=== PATIENT | female | born 1950 | race Two or more races ===

== ENCOUNTER 2024-09-29 22:54 | Emergency (ER) | payer OTHER ==
[~2024-09-29] VITALS: Ht 149.9 cm; Wt 77.2 kg
[2024-09-30 00:35] VITALS: BP 159/81; PULSE 74; RESP 16; TEMP 98.8; O2SAT 97
[2024-09-30] MEDS ORDERED: AZIT-43 PO (00:37)
[2024-09-30] MEDS ORDERED: PRED10TA PO (00:37)
--- NOTE | 2024-09-30 00:38 | ED.PDOC ---
SOB-HPI HPI Comments 74-year-old female presents to ER with complaints of cough x1 day. Patient with PMH of hypertension reports that she has been experiencing productive cough with white phlegm and congestion x1 day. Denies use of medications for current symptoms. Denies any current pain. Patient presents to ER ambulatory on arrival, alert and oriented x4, with steady gait, in no distress and does present hypertensive at 193/95, noting that she just took her prescribed clonidine 0.2 mg on arrival to ER. 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 Pertinent MUSIC THEORY PROFESSOR History Family History Family History: Unknown Social History Smoker: Non-Smoker Alcohol: Denies ETOH Use Drugs: Denies Drug Use Lives In: Home Constitutional: denies: chills, diaphoresis, fatigue, fever, malaise, sweats, weakness, others EENTM: denies: blurred vision, double vision, ear bleeding, ear discharge, ear drainage, ear pain, ear ringing, eye pain, eye redness, hearing loss, mouth pain, mouth swelling, nasal discharge, nose bleeding, nose congestion, nose pain, photophobia, tearing, throat pain, throat swelling, voice changes, others Respiratory: reports: others (As stated in HPI) Cardiovascular: denies: chest pain, dizzy spells, diaphoresis, Dyspnea on exertion, edema, irregular heart beat, left arm pain, lightheadedness, palpitations, PND, syncope, others Gastrointestinal: denies: abdomen distended, abdominal pain, blood streaked bowels, constipated, diarrhea, dysphagia, difficulty swallowing, hematemesis, melena, nausea, poor appetite, poor fluid intake, rectal bleeding, rectal pain, vomiting, others Genitourinary: denies: abnormal vagina bleeding, burning, dyspareunia, dysuria, flank pain, frequency, hematuria, incontinence, pain, , vagina discharge, urgency, others Neurological: denies: dizziness, fainting, headache, left sided numbness, left sided weakness, numbness, paresthesia, pre-existing deficit, right sided numbness, right sided weakness, seizure, speech problems, tingling, tremors, weakness, others Musculoskeletal: denies: back pain, gout, joint pain, joint swelling, muscle pain, muscle stiffness, neck pain, others Integumetry: denies: bruises, change in color, change in hair/nails, dryness, laceration, lesions, lumps, rash, wounds, others Allergic/Immunocompromised: denies: Difficulty Healing, Frequent Infections, Hives, Itching, others Hematologic/Lymphatic: denies: anemia, blood clots, easy bleeding, easy bruising, swollen glands, others Endocrine: denies: excessive hunger, excessive sweating, excessive thirst, excessive urination, flushing, intolerance to cold, intolerance to heat, unexplained weight gain, unexplained weight loss, others Psychiatric: denies: anxiety, bipolar disorder, depression, hopeless, panic disorder, schizophrenia, sleepless, suicidal, others Physical Exam General Appearance: No Apparent Distress, Obese HEENT: Normal ENT Inspection, PERRL/EOMI, Pharynx Normal, TMs Normal Neck: Full Range of Motion, Non-Tender, Normal Respiratory: Chest Non-Tender, Lungs Clear, No Accessory Muscle Use, No Respiratory Distress, Normal Breath Sounds Cardiovascular: No Murmur, No Gallop, Regular Rate/Rhythm Breast Exam: Deferred Gastrointestinal: NOT DONE Genitalia: Deferred Pelvic: Deferred Rectal: Deferred Extremities: Normal capillary refill, Normal range of motion Neurologic: Alert, sign builder II-XII nml as Tested, No Motor Deficits, Normal Affect, Normal Mood, No Sensory Deficits Cerebellar Function: Normal Reflexes: Normal Skin: Dry, Normal Color, Warm Peripheral Pulses: 2+ Radial (R), 2+ Radial (L), 2+ Brachial (R), 2+ Brachial (L) Lymphatic: No Adenopathy Was a procedure done? Was a procedure done?: No Sedation Sedation?: No Differential Dx Differential Diagnosis: Pneumonia, Respiratory Distress, Sinusitis, Pharyngitis X-Ray, Labs, Meds, VS Vital Signs Date Time Temp Pulse Resp B/P (MAP) Pulse Ox O2 Delivery O2 Flow Rate FiO2 09/30/24 00:35 98.8 74 16 159/81 (107) 97 98.8 09/29/24 23:14 98.8 74 16 193/95 [phone] 86 98.8 Patient in no distress during ER visit/prior to discharge Advised to drink plenty of fluids Advised to monitor/record blood pressure readings closely at home Advised to continue blood pressure medications as currently prescribed Advised to follow up with PCP in 1-2 days Patient verbalized understanding and agreeable with current plan of care Advised to return to ER immediately if symptoms worsen Time of 1ST Reevaluation: 00:12 Reevaluation 1ST: N/A Patient Education/Counseling: Diagnosis, Treatment, Prognosis, Need For Follow Up Family Education/Counseling: No Family Present Departure 1 Departure Time of Disposition: 00:32 Impression: Primary Impression: Upper respiratory infection Qualified Codes: J06.9 - Acute upper respiratory infection, unspecified Disposition: HOME / SELF CARE / HOMELESS Condition: Stable e-Prescriptions Prednisone (Prednisone) 10 Mg Tab 10 MG PO BID for 5 Days, #10 TAB 0 Refills Prov: RANDELL ROGERS 09/30/24 Azithromycin (Azithromycin) 250 Mg Tab 250 MG PO DAILY MDD 500 for 5 Days, #6 TAB 0 Refills 2 TABLETS ORALLY ON DAY ONE, THEN 1 TABLET ORALLY DAILY FOR 4 DAYS Prov: RANDELL ROGERS 09/30/24 Discharged With: Self Critical Care Note Critical Care Time?: No Stability Stability form required: No Heart Score Heart Score: Heart Score Response (Comments) Value History N/A 0 EKG N/A 0 Age N/A 0 Risk Factors N/A 0 Troponin N/A 0 Total 0 RANDELL ROGERS Sep 30, 2024 00:38
== END 2024-09-30 00:45 | disposition home or self-care (01) ==
LOC: ER 22:54
DX: J06.9 Acute upper respiratory infection, unspecified (principal); I10 Essential (primary) hypertension

== ENCOUNTER 2025-02-07 04:33 | Emergency (ER) | payer OTHER ==
[~2025-02-07] VITALS: Ht 149.9 cm; Wt 82.0 kg
[~2025-02-07 04:33] MED LIST: AZIT-43 PO; PRED10TA PO
--- NOTE | 2025-02-07 04:51 | ED.PDOC ---
History of Present Illness HPI Comments 75-year-old female came to ER for chest pains. Patient does have history of hypertension. States she woke up earlier with the headaches, blurred vision, chest discomfort, tingling, and left arm numbness. Patient states whenever she feels this way, is always because her blood pressure was high. She did not bother to check her blood pressure, instead she took her clonidine, atenolol, losartan all at the same time and decided to go to the ER for evaluation. Upon arrival blood pressure was 162/80 mmHg. She denies any pain at this time. REVIEW OF SYSTEMS: No fever, no chills, or fatigue HEENT: No sore throat, no earache, no congestion, no neck pain. Cardiac: (+) chest pain. No palpitations. (+)left arm numbness Lungs: No shortness of breath, no cough. GI: No nausea, no vomiting, no diarrhea, no constipation, no abdominal pain : No dysuria, frequency, or urgency. No hematuria. Musculoskeletal: No joint pain , no joint swelling, no extremity edema. Skin: No rash, no itching. Neuro: No headache, no dizziness, no weakness Physical exam General: Awake, alert and oriented. No acute distress. Skin: Skin in warm, dry and intact. Appropriate color for ethnicity. Nailbeds pink with no cyanosis. HEENT: The head is normocephalic and atraumatic. Conjunctivae are clear without exudates or hemorrhage. Sclera is non-icteric. EOM are intact. No signs of nystagmus. Eyelids are normal in appearance without swelling or lesions. Oral mucosa is pink and moist Neck: The neck is supple with normal range of motion. No JVD. Cardiac: Heart rate and rhythm are normal. No murmurs, gallops, or rubs are auscultated. Respiratory: No signs of respiratory distress. Lung sounds are clear in all lobes bilaterally without rales, rhonchi, or wheezes. Abdominal: Abdomen is soft, non-tender without distention. Bowel sounds are present and normoactive in all four quadrants. Extremities: Upper and lower extremities are atraumatic in appearance without deformity or edema. Neurological: The patient is awake, alert and oriented to person, place, and time with normal speech. Speech is clear. There is no facial asymmetry. Sensation and strength intact in bilateral upper extremities. Psychiatric: Appropriate mood and affect. Good judgement and insight. No visual or auditory hallucinations. Chief Complaint: Chest Pain Time Seen by MD: 04:51 Primary Care Provider: ANDERSON Reviewed Notes: Nurses Notes Allergies: Coded Allergies: Ethanol (Verified Allergy, Severe, 09/29/24) Guaifenesin (Verified Allergy, Severe, 09/29/24) Penicillins (Verified Allergy, Severe, 09/29/24) Home Meds Active Scripts Prednisone (Prednisone) 10 Mg Tab, 10 MG PO BID for 5 Days, #10 TAB 0 Refills Prov:RANDELL ROGERS 09/30/24 Azithromycin (Azithromycin) 250 Mg Tab, 250 MG PO DAILY MDD 500 for 5 Days, #6 TAB 0 Refills 2 TABLETS ORALLY ON DAY ONE, THEN 1 TABLET ORALLY DAILY FOR 4 DAYS Prov:RANDELL ROGERS 09/30/24 Information Source: Patient Mode of Arrival: Ambulatory Past Medical History PAST MEDICAL HISTORY: HTN Surgical History: Denies all surgeries HAND SAMPLE MAKER History: No Pertinent HAND SAMPLE MAKER History Family History Family History: Reviewed,noncontributory to illness Social History Smoker: Non-Smoker Alcohol: Denies ETOH Use Drugs: Denies Drug Use Lives In: Home Was a procedure done? Was a procedure done?: No EKG EKG : Pulse Rate (adult): 60 Cardiac Rhythm: NSR Differential Dx Considerations may include: Hypertensive urgency, anxiety, chest pain X-Ray, Labs, Meds, VS Vital Signs Date Time Temp Pulse Resp B/P (MAP) Pulse Ox O2 Delivery O2 Flow Rate FiO2 02/07/25 08:33 98.0 60 15 133/67 (89) 98 98.0 02/07/25 04:53 97.9 61 20 162/83 98 97.9 02/07/25 04:51 60 02/07/25 04:48 60 Lab Test 02/07/25 05:06 Range/Units Troponin I High Sensitivity 4 </=34 ng/L Time of 1ST Reevaluation: 04:46 Reevaluation 1ST: Unchanged Patient Education/Counseling: Need For Follow Up Family Education/Counseling: No Family Present SEPSIS Sepsis Screen Physician Orders Electrocardigram (02/07/25 04:35) Vital Signs Date Time Temp Pulse Resp B/P (MAP) Pulse Ox O2 Delivery O2 Flow Rate FiO2 02/07/25 08:33 98.0 60 15 133/67 (89) 98 98.0 02/07/25 04:53 97.9 61 20 162/83 98 97.9 02/07/25 04:51 60 02/07/25 04:48 60 Departure 1 Departure Time of Disposition: Impression: Primary Impression: Chest pain Additional Impression: Hypertension Disposition: HOME / SELF CARE / HOMELESS Condition: Stable Additional Instructions: ED DISCHARGE INSTRUCTIONS Instructions: Please read all instructions provided in this packet carefully. Although you have been discharged from the Emergency Department, this does not mean that you have a "clean bill of health". No definitive diagnosis for your symptoms has been made today. It is possible that you are in the process of developing a serious illness. This is why you must return to the ED without fail if any new or worsening symptoms (especially if your symptoms include chest pain, trouble breathing, abdominal pain, fever, headache, confusion, trouble seeing, or trouble walking) It is also very important that you see a primary care provider (PCP) within the next 1-3 days to follow up. If you are unable to get an appointment, return to the ED for re-evaluation. CHEST PAIN EDUCATION There are many things that can cause chest pain. Some are not serious and will get better on their own in a few days. But some kinds of chest pain need more testing and treatment. Your doctor may have recommended a follow-up visit in the next few days. If you are not getting better, you may need more tests or treatment. Even though your doctor has released you, you still need to watch for any problems. The doctor carefully checked you, but sometimes problems can develop later. If you have new symptoms or if your symptoms do not get better, get medical care right away. If you have worse or different chest pain or pressure that lasts more than 5 minutes or you passed out (lost consciousness), call 911 or seek other emergency help right away. A medical visit is only one step in your treatment. Even if you feel better, you still need to do what your doctor recommends, such as going to all suggested follow-up appointments and taking medicines exactly as directed. This will help you recover and help prevent future problems. How can you care for yourself at home? Rest until you feel better. Take your medicine exactly as prescribed. Call your doctor if you think you are having a problem with your medicine. Do not drive after taking a prescription pain medicine. When should you call for help? Call 911 if: You passed out (lost consciousness). You have severe difficulty breathing. You have symptoms of a heart attack. These may include: Chest pain or pressure, or a strange feeling in your chest. Sweating. Shortness of breath. Nausea or vomiting. Pain, pressure, or a strange feeling in your back, neck, jaw, or upper belly or in one or both shoulders or arms. Lightheadedness or sudden weakness. A fast or irregular heartbeat. After you call 911, the utility operator may tell you to chew 1 adult-strength or 2 to 4 low-dose aspirin. Wait for an ambulance. Do not try to drive yourself. Call your doctor now or seek immediate medical care if: You have any trouble breathing. You have new or different chest pain. You are dizzy or lightheaded, or you feel like you may faint. Watch closely for changes in your health, and be sure to contact your doctor if you do not get better as expected. Current as of: January 29, 2024 Author: [employer] Staff? Comments 75-year-old female with numbness tingling in the left hand. EKG negative for signs of ischemia. High sensitivity troponin negative. Vital signs at discharge within normal limits. Presentation not suggestive of CVA, acute coronary syndrome, pulmonary embolism or aortic dissection. Patient improved at time of discharge. Patient has not been hypoxic, in respiratory distress or dyspneic during the ED observation. Patient able to ambulate without difficulty. Patient felt stable for discharge to follow up with PCP promptly. Patient advised to return to the ED with any new, worsening or concerning symptoms or inability to follow up with PCP. Critical Care Note Critical Care Time?: No Stability Stability form required: No Heart Score Heart Score: Heart Score Response (Comments) Value History N/A 0 EKG N/A 0 Age N/A 0 Risk Factors N/A 0 Troponin N/A 0 Total 0 I personally scribed for MODESTA GREENE MD ([email or web address]) on 02/07/25 at 04:51. Electronically submitted by Ezio Schmitz ([email or web address]). I personally scribed for MODESTA GREENE MD ([email or web address]) on 02/07/25 at 04:52. Electronically submitted by Ezio Schmitz ([email or web address]). MODESTA GREENE MD Feb 07, 2025 04:51
[2025-02-07 08:33] VITALS: BP 133/67; PULSE 60; RESP 15; TEMP 98; O2SAT 98
--- NOTE | 2025-02-08 08:34 | ECG ---
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
== END 2025-02-07 08:39 | disposition home or self-care (01) ==
LOC: ER 04:33
DX: R07.89 Other chest pain (principal); I10 Essential (primary) hypertension; Z88.0 Allergy status to penicillin; Z79.899 Other long term (current) drug therapy
CPT/HCPCS: 36415; 84484; 93005

== ENCOUNTER 2025-02-07 19:30 | Emergency (ER) | payer OTHER ==
[~2025-02-07] VITALS: Ht 149.9 cm; Wt 77.2 kg
[2025-02-07 19:38] VITALS: BP 163/77; PULSE 59; RESP 18; TEMP 98; O2SAT 98
--- NOTE | 2025-02-07 20:33 | ED.PDOC ---
History of Present Illness HPI Comments 75-year-old Tongan-speaking female who presents with daughter for chief complaint of hypertension, with associated left hand tingling sensation. Per daughter, patient endorses on returning to the ER, after, already, being evaluated for symptoms, earlier, today, due to them still persisting. She is reported that the take atenolol and losartan for her hypertension and has a history of compliancy. Denies any chest pain, shortness of breath, headache, blurry vision, dizziness, or further associated symptoms. REVIEW OF SYSTEMS: General: No fever, no chills, or fatigue HEENT: No sore throat, no earache, no congestion, no neck pain. Cardiac: Hypertension. No chest pain. No palpitations. Lungs: No shortness of breath, no cough. GI: No nausea, no vomiting, no diarrhea, no constipation, no abdominal pain : No dysuria, frequency, or urgency. No hematuria. Musculoskeletal: No joint pain , no joint swelling, no extremity edema. Skin: No rash, no itching. Neuro: Left hand tingling sensation, no headache, no dizziness, no weakness PHYSICAL EXAM: General: Awake, alert and oriented. No acute distress. Skin: Skin in warm, dry and intact. Appropriate color for ethnicity. HEENT: The head is normocephalic and atraumatic. Conjunctivae are clear without exudates or hemorrhage. Sclera is non-icteric. EOM are intact. No signs of nystagmus. Eyelids are normal in appearance without swelling or lesions. Oral mucosa is pink and moist Neck: The neck is supple with normal range of motion. No JVD. Cardiac: Heart rate and rhythm are normal. No murmurs, gallops, or rubs are auscultated. Respiratory: No signs of respiratory distress. Lung sounds are clear in all lobes bilaterally without rales, rhonchi, or wheezes. Abdominal: Abdomen is soft, non-tender without distention, guarding or rigidity. Bowel sounds are present and normoactive in all four quadrants. Extremities: Upper and lower extremities are atraumatic in appearance without deformity or edema. Neurological: The patient is awake, alert and oriented to person, place, and time with normal speech. Speech is clear. There is no facial asymmetry. Strength and sensation are normal in left hand, no worsening paresthesia. Normal capillary refill Psychiatric: Appropriate mood and affect. Good judgement and insight. Chief Complaint: High Blood Pressure Time Seen by MD: 19:41 Primary Care Provider: ANDERSON Reviewed Notes: Nurses Notes, Medications, Allergies Allergies: Coded Allergies: Ethanol (Verified Allergy, Severe, 09/29/24) Guaifenesin (Verified Allergy, Severe, 09/29/24) Penicillins (Verified Allergy, Severe, 09/29/24) Home Meds Active Scripts Prednisone (Prednisone) 10 Mg Tab, 10 MG PO BID for 5 Days, #10 TAB 0 Refills Prov:RANDELL ROGERS 09/30/24 Azithromycin (Azithromycin) 250 Mg Tab, 250 MG PO DAILY MDD 500 for 5 Days, #6 TAB 0 Refills 2 TABLETS ORALLY ON DAY ONE, THEN 1 TABLET ORALLY DAILY FOR 4 DAYS Prov:RANDELL ROGERS 09/30/24 Information Source: Patient, Relative (Child) Mode of Arrival: Ambulatory Severity: Moderate Timing: Hours Duration: Since onset Prehospital treatment: None Past Medical History PAST MEDICAL HISTORY: HTN Surgical History: Denies all surgeries GAS PLUMBING INSPECTOR History: No Pertinent GAS PLUMBING INSPECTOR History Family History Family History: Reviewed,noncontributory to illness Social History Smoker: Non-Smoker Alcohol: Denies ETOH Use Drugs: Denies Drug Use Lives In: Home Was a procedure done? Was a procedure done?: No Differential Dx Considerations may include: Hypertension-improved from medication dosage, anxiety, dehydration, electrolyte imbalance, among others; Differential diagnoses considered include but are not limited to sepsis, CVA, ACS, PE, stroke, ICH, adrenal insufficiency, viral syndrome, thyroid storm, myxedema coma , DKA, HHS, hypoglycemia, anemia, GI bleeding, renal failure, dehydration, hepatic failure, electrolyte imbalance, carbon monoxide poisoning, malignancy, UTI, other. X-Ray, Labs, Meds, VS Vital Signs Date Time Temp Pulse Resp B/P (MAP) Pulse Ox O2 Delivery O2 Flow Rate FiO2 02/07/25 19:38 98.0 59 18 163/77 98 98.0 Lab Test 02/07/25 20:30 Range/Units White Blood Count 7.8 4.4-10.8 10^3/uL Red Blood Count 5.84 H 4.0-5.20 10^6/uL Hemoglobin 12.8 12.2-16.2 g/dL Hematocrit 40.6 36.0-46.0 % Mean Corpuscular Volume 69.6 L 80.0-100.0 fL Mean Corpuscular Hemoglobin 21.9 L 28.0-32.0 pg Mean Corpuscular Hemoglobin Concent 31.4 L 32.0-36.0 g/dL Red Cell Distribution Width 16.7 H 11.8-14.3 % Platelet Count 191 140-450 10^3/uL Mean Platelet Volume 8.3 6.9-10.8 fL Neutrophils (%) (Auto) 58.4 37.0-80.0 % Lymphocytes (%) (Auto) 30.8 10.0-50.0 % Monocytes (%) (Auto) 7.5 0.0-12.0 % Eosinophils (%) (Auto) 2.7 0.0-7.0 % Basophils (%) (Auto) 0.6 0.0-2.0 % Neutrophils # (Auto) 4.5 1.6-8.6 10 ^3/uL Lymphocytes # (Auto) 2.4 0.4-5.4 10 ^3/uL Monocytes # (Auto) 0.6 0-1.3 10 ^3/uL Eosinophils # (Auto) 0.2 0-0.8 10 ^3/uL Basophils # (Auto) 0 0-0.2 10 ^3/uL Nucleated Red Blood Cells 0.1 % Sodium Level 141 136-145 mmol/L Potassium Level 4.1 3.5-5.1 mmol/L Chloride Level 107 98-107 mmol/L Carbon Dioxide Level 26 20-31 mmol/L Anion Gap 8 5-15 Blood Urea Nitrogen 12 9-23 mg/dL Creatinine 0.97 0.550-1.02 mg/dL Glomerular Filtration Rate Calc 61 >90 mL/min BUN/Creatinine Ratio 12.4 10.0-20.0 Serum Glucose 96 74-106 mg/dL Calcium Level 8.8 8.7-10.4 mg/dL Magnesium Level 2.1 1.6-2.6 mg/dL Time of 1ST Reevaluation: 20:11 Reevaluation 1ST: Unchanged Patient Education/Counseling: Need For Follow Up Family Education/Counseling: Need For Follow Up SEPSIS Sepsis Screen Date sepsis recognized/suspect: Feb 07, 2025 Time Sepsis recognized/suspect: 1937 Recent Procedure: No On Antibiotic Therapy: No Respiratory Rate >20: No Heart Rate >90: No Temp<36 C (96.8 F) or >38.3 C: No SBP <90 or MAP <65 mmHG: No New Acute Mental Status Change: No Is the patient on CPAP, BIPAP,: No Vital Signs Date Time Temp Pulse Resp B/P (MAP) Pulse Ox O2 Delivery O2 Flow Rate FiO2 02/07/25 19:38 98.0 59 18 163/77 98 98.0 Laboratory Tests Test 02/07/25 20:30 White Blood Count 7.8 10^3/uL (4.4-10.8) Departure 1 Departure Time of Disposition: 21:48 Impression: Primary Impression: Numbness and tingling in left hand Additional Impression: Hypertension Disposition: HOME / SELF CARE / HOMELESS Condition: Stable Additional Instructions: ED DISCHARGE INSTRUCTIONS Instructions: Please read all instructions provided in this packet carefully. Although you have been discharged from the Emergency Department, this does not mean that you have a "clean bill of health". No definitive diagnosis for your symptoms has been made today. It is possible that you are in the process of developing a serious illness. This is why you must return to the ED without fail if any new or worsening symptoms (especially if your symptoms include numbness, difficulty using arm or leg, difficulty speaking, chest pain, trouble breathing, abdominal pain, fever, headache, confusion, trouble seeing, or trouble walking) It is also very important that you see a primary care provider (PCP) within the next 1-3 days to follow up. If you are unable to get an appointment, return to the ED for re-evaluation. Comments MDM: Isolated intermittent left hand tingling intermittently for several days Symptoms resolved in the ED No neuro deficits Blood pressure mildly elevated Advised follow up primary care provider for further management of symptoms Extensive evaluation was performed in attempt to identify or rule out: (See differential diagnosis section) The following tests were ordered, and results were reviewed by me and discussed with patient: (See diagnostic results section) The following test were independently interpreted by me: N/A I reviewed and agreed with the following test results read by other providers: N/A I reviewed the following notes from the pt's past medical encounters: September 29, 2024 and February 07, 2025 encounters for upper respiratory infection and chest pain, respectfully Additional information was gathered from interviewing the following independent historians: Daughter Decision regarding hospitalization or escalation of hospital level of care: Risks and benefits of admission for further treatment of patient's condition was considered however due to patient's stable condition patient will be discharged to follow up closely or return to care for worsening of condition or inability to follow up. Critical Care Note Critical Care Time?: No Stability Stability form required: No Heart Score Heart Score: Heart Score Response (Comments) Value History N/A 0 EKG N/A 0 Age N/A 0 Risk Factors N/A 0 Troponin N/A 0 Total 0 I personally scribed for MODESTA GREENE MD ([email or web address]) on 02/07/25 at 20:33. Electronically submitted by Joao Greenberg ([email or web address]). I personally scribed for MODESTA GREENE MD ([email or web address]) on 02/08/25 at 00:17. Electronically submitted by Joao Greenberg ([email or web address]). MODESTA GREENE MD Feb 07, 2025 20:33
[2025-02-07 20:44] LABS: Hematocrit 40.6 % (36.0-46.0); Hemoglobin 12.8 g/dL (12.2-16.2); Mean Corpuscular Hemoglobin 21.9 pg (28.0-32.0); Mean Corpuscular Volume 69.6 fL (80.0-100.0); Nucleated Red Blood Cells % 0.1 %
[2025-02-07 20:52] LABS: Chloride 107 mmol/L (98-107); Potassium 4.1 mmol/L (3.5-5.1); Sodium 141 mmol/L (136-145)
[2025-02-07 20:53] LABS: Anion Gap 8 (5-15); Carbon Dioxide 26 mmol/L (20-31)
[2025-02-07 20:54] LABS: Calcium 8.8 mg/dL (8.7-10.4)
[2025-02-07 20:58] LABS: Glucose 96 mg/dL (74-106)
[2025-02-07 20:59] LABS: BUN/Creatinine Ratio 12.4 (10.0-20.0); Blood Urea Nitrogen 12 mg/dL (9-23); Magnesium 2.1 mg/dL (1.6-2.6)
== END 2025-02-08 00:22 | disposition home or self-care (01) ==
LOC: ER 19:30
DX: R20.0 Anesthesia of skin (principal); R20.2 Paresthesia of skin; I10 Essential (primary) hypertension; Z88.0 Allergy status to penicillin
CPT/HCPCS: 36415; 80048; 83735; 85025